=== PATIENT | female | born 1960 | race Caucasian/White ===

== ENCOUNTER → 2016-11-02 | Outpatient (CLI) | payer OTHER ==
[~2016-11-02] MED LIST: B-COTAB18 PO; CHOLTAB3 PO; ESTCR PV
== END | disposition home or self-care (01) ==
LOC: C.PAPS 16:07
PROVIDERS: ATTEND Obstetrics & Gynecology
DX: Z12.4 Encounter for screening for malignant neoplasm of cervix (principal)

== ENCOUNTER → 2016-12-07 | Outpatient (CLI) | payer OTHER ==
--- NOTE | 2016-12-08 07:42 | MAMMOGRAPHY REPORT ---
BILATERAL DIGITAL SCREENING MAMMOGRAM TOMOSYNTHESIS WITH CAD: 12/07/2016 CLINICAL HISTORY: Routine screening. Patient has no complaints. TECHNIQUE: Breast tomosynthesis in addition to standard 2D mammography was performed. Current study was also evaluated with a Computer Aided Detection (CAD) system. COMPARISON: Comparison is made to exams dated: 12/05/2015 mammogram, 12/03/2014 mammogram, 11/30/2013 m ammogram, 11/29/2012 mammogram, 11/26/2011 mammogram, and 11/28/2009 mammogram - [facility]. BREAST COMPOSITION: The tissue of both breasts is extremely dense, which lowers the sensitivity of m ammography. FINDINGS: The parenchymal pattern is unchanged. There are a few stable benign-appearing punctate mi crocalcifications. No developing mass, architectural distortion or cluster of suspicious microcalcif ications is seen in either breast. IMPRESSION: ACR BI-RADS CATEGORY 2: BENIGN There is no mammographic evidence of malignancy. A 1 year screening mammogram is recommended. The pa tient will receive written notification of the results. Approximately 10% of breast cancers are not detected with mammography. A negative mammographic report should not delay biopsy if a clinically suggestive mass is present. Mary Kay Patrick M.D. ay/:12/07/2016 17:05:01 Transmission Mechanic: Lashae WANG(Yuliet)(Ailyn)(BD), [facility] letter sent: Normal 1/2 BI-RADS Code: ACR BI-RADS Category 2: Benign
== END | disposition home or self-care (01) ==
LOC: C.MAMM 10:44
PROVIDERS: ATTEND Obstetrics & Gynecology
DX: Z12.31 Encounter for screening mammogram for malignant neoplasm of breast (principal)

== ENCOUNTER → 2017-12-10 | Outpatient (CLI) | payer OTHER ==
--- NOTE | 2017-12-13 07:43 | MAMMOGRAPHY REPORT ---
BILATERAL DIGITAL SCREENING MAMMOGRAM TOMOSYNTHESIS WITH CAD: 12/10/2017 CLINICAL HISTORY: Routine screening. Patient has no complaints. TECHNIQUE: The study was acquired using full field digital technology and interpreted from soft copy. Breast tomosynthesis in addition to standard 2D mammography was performed. Current study was also ev aluated with a Computer Aided Detection (CAD) system. COMPARISON: Comparison is made to exams dated: 12/07/2016 mammogram, 12/05/2015 mammogram, 12/03/2014 m ammogram, 11/30/2013 mammogram, 11/26/2011 mammogram, and 11/28/2009 mammogram - [facility]. BREAST COMPOSITION: The tissue of both breasts is extremely dense, which lowers the sensitivity of ma mmography. FINDINGS: No suspicious masses, calcifications, or areas of architectural distortion are noted in either breast . There has been no significant interval change compared to prior exams. IMPRESSION: ACR BI-RADS CATEGORY 1: NEGATIVE There is no mammographic evidence of malignancy. A 1 year screening mammogram is recommended.( 019) The patient will receive written notification of the results. Some breast cancers are not detected with mammography. A negative mammographic report should not amanda y biopsy if a clinically suggestive mass is present. Lety Bradley M.D. /:12/10/2017 14:16:36 Industrial Photographer: Nery Sellers, [facility] letter sent: Normal 1/2 BI-RADS Code: ACR BI-RADS Category 1: Negative
== END | disposition home or self-care (01) ==
LOC: C.MAMM 13:44
PROVIDERS: ATTEND Obstetrics & Gynecology
DX: Z12.31 Encounter for screening mammogram for malignant neoplasm of breast (principal)

== ENCOUNTER 2022-10-04 09:49 | Inpatient (IN) ==
--- NOTE | 2022-10-04 10:35 | XRay Report ---
XR hip LT 2V w pelvis CLINICAL HISTORY: left hip pain, fall TECHNIQUE: 2 views of the left hip and single frontal view of the pelvis were obtained. Comparison: Comparison is made to CT abdomen pelvis 05/23/2015 FINDINGS: There is no evidence of an acute fracture. Joint spaces are well-preserved. No soft tissue abnormalit y is seen. IMPRESSION: No evidence of acute osseous injury. ACT 112: Negative or not required by law. Electronically signed by: Robby Brown M.D. 10/04/2022 10:34 AM
[2022-10-04 11:23] LABS: Basophils # (auto) 0.02 K/uL (0-0.2); Basophils % (auto) 0.3 %; Eosinophils # (auto) 0.12 K/uL (0-0.50); Eosinophils % (auto) 1.7 %; Hematocrit (blood only) 43.7 % (37.0-47.0); Hemoglobin 14.7 g/dl (12.0-16.0); Immature Granulocytes # (auto) 0.02 K/uL (0.01-0.20); Immature Granulocytes % (auto) 0.3 %; Lymphocytes # (auto) 0.95 K/uL (1.2-3.4); Lymphocytes % (auto) 13.1 %; Mean Corpuscular Hemoglobin 29.5 pg (25.0-34.0); Mean Corpuscular Hgb Conc 33.6 g/dL (32.0-36.0); Mean Corpuscular Volume 87.8 fL (80.0-100.0); Mean Platelet Volume 9.1 fL (9.4-12.4); Monocytes % (auto) 6.9 %; Neutrophils # (auto) 5.62 K/uL (1.40-6.50); Neutrophils % (auto) 77.7 %; Platelet Count 242 K/uL (130-400); RDW Coefficient of Variation 13.2 % (11.5-14.5); RDW Standard Deviation 42.5 fL (36.4-46.3); Red Blood Count 4.98 M/uL (4.20-5.40); White Blood Count 7.23 K/ul (4.8-10.8)
--- NOTE | 2022-10-04 11:24 | XRay Report ---
XR chest 1V portable CLINICAL HISTORY: hip fx TECHNIQUE: Single frontal radiograph of the chest was obtained. Comparison: None available at the time of this dictation. FINDINGS: No lines and tubes are seen. The cardiomediastinal silhouette is normal. The lungs are clear. No evid ence of pleural effusion or pneumothorax. IMPRESSION: No acute chest disease. ACT 112: Negative or not required by law. Electronically signed by: Robby Brown M.D. 10/04/2022 11:23 AM
[2022-10-04 11:37] LABS: Albumin Globulin Ratio 1.5 (0.9-2); Albumin Level 4.5 gm/dl (3.4-5.0); BUN Creatinine Ratio 12.7 (10-20); Bilirubin,Total 0.7 mg/dl (0.2-1.0); Calcium 9.3 mg/dl (8.6-10.3); Creatinine Clr Calc Pharmacy 58.3 ml/min; Est GFR (African American) 105.1 ml/min; Est GFR (Non-African American) 90.7 ml/min; Potassium 3.9 mmol/L (3.5-5.1); Total Protein 7.5 gm/dl (6.0-8.3)
[2022-10-04 11:48] LABS: INR 0.9 (0.9-1.1); Partial Thromboplastin Ratio 0.9; Prothrombin Time 10.4 Seconds (9.0-12.0)
--- NOTE | 2022-10-04 12:39 | Emergency Department Note ---
ED Provider Note History of Present Illness Chief Complaint: Leg Injury/Pain Stated Complaint: FALL, LEFT HIP AND LEG PAIN Time Seen by Provider: 10/04/22 10:08 Source: patient Mode of arrival: ambulatory Limitations: no limitations This patient is a 62-year-old female who presents to the emergency department for evaluation of left hip pain. Patient sustained a fall yesterday. She states that she was messing around with her daughter and her daughter lightly pu shed her, but she lost her footing and fell onto her left hip. She did not sustain any other injuries. She has not been able to bear any weight on the hip. She denies prior injuries to the hip. Home Medications Medication Instructions Recorded Confirmed Type lutein 6 mg tablet 6 mg PO DAILY 02/14/19 10/04/22 History calcium carb-ergocalciferol (vit 1 tab PO DAILY 10/04/22 10/04/22 History D2) 600 mg calcium-200 unit tablet vitamin B complex 1 tab PO DAILY 10/04/22 10/04/22 History Allergies Allergy/AdvReac Type Severity Reaction Status Date / Time No Known Drug Allergies Allergy Unknown NKDA Verified 06/01/22 14:18 ragweed pollen Allergy Unknown UNKNOWN Verified 06/01/22 14:18 Past Med/Surg History Medical History History of chicken pox History of reactive airway disease Surgical History S/P section S/P colonoscopy 2014 Family History Father Alcoholism Suicide Sister Eisenmenger syndrome Mother Uterine cancer Denies family history of Breast cancer Colorectal cancer Social History Smoking Status: Never smoker Do You Dip or Chew Tobacco: No; Hx Alcohol Use: Yes Hx Substance Use: No Preferred Language: Cuban Feels Safe at Home: Yes Physical Exam Vital Signs Vital Signs - 24 hr 10/04/22 10:10 10/04/22 11:00 Temperature 37 C Temperature Source Oral Pulse Rate [Right Finger] 84 Pulse Rhythm [Right Finger] Regular Pulse Strength [Right Finger] Normal Respiratory Rate 16 18 Respiratory Effort / Characteristics Non-Labored Spontaneous Non-Labored Respiratory Depth Normal Normal Respiratory Pattern Regular Blood Pressure 110/60 Blood Pressure [Right Arm] 125/62 Blood Pressure Mean 76 Blood Pressure Mean [Right Arm] 83 Blood Pressure Position Sitting Blood Pressure Position [Right Arm] Lying Pulse Oximetry 98 99 Oxygen Delivery Method Room Air Room Air Sepsis Recent Fever Within 48 Hours No Sepsis New/Unexplained Change in Mental Status No Sepsis Action Taken by Nursing No Action Required VITALS: Vitals are noted on the nurse's note and reviewed by myself. GENERAL: This is a 62-year-old female, in no acute distress, well-developed well-nourished. HEART: Regular rate and rhythm without murmurs gallops or rubs. LUNGS: Clear to auscultation bilaterally without wheezes, rales or rhonchi. MUSCULOSKELETAL: No obvious deformity. There is tenderness to palpation in the anterior left hip and decreased range of motion at the left hip. NEURO: Patient was alert and oriented to person place and time. Distal sensation intact. Course Consultations Consultation #1: Dr. Schmidt - orthopedics Consultation #2: Dr. [place] - [facility] hospitalist Medical Decision Making Differential Diagnosis Fracture, dislocation, neurovascular compromise, compartment syndrome, soft tissue injury, as well as other pathologies. Home Medications was personally reviewed by me Laboratory Data Attestation: I reviewed the patient's lab results. 10/04/22 10:59 10/04/22 10:59 Lab Results 10/04/22 10/04/22 10/04/22 Range/Units 10:59 10:59 10:59 WBC 7.23 (4.8-10.8) K/ul RBC 4.98 (4.20-5.40) M/uL Hgb 14.7 (12.0-16.0) g/dl Hct 43.7 (37.0-47.0) % MCV 87.8 (80.0-100.0) fL MCH 29.5 (25.0-34.0) pg MCHC 33.6 (32.0-36.0) g/dL RDW Std Deviation 42.5 (36.4-46.3) fL RDW Coeff of Franklin 13.2 (11.5-14.5) % Plt Count 242 (130-400) K/uL MPV 9.1 L (9.4-12.4) fL Immature Gran % (Auto) 0.3 % Neut % (Auto) 77.7 % Lymph % (Auto) 13.1 % Ector % (Auto) 6.9 % Eos % (Auto) 1.7 % Baso % (Auto) 0.3 % Neut # (Auto) 5.62 (1.40-6.50) K/uL Lymph # (Auto) 0.95 L (1.2-3.4) K/uL Ector # (Auto) 0.50 (0.11-0.59) K/uL Eos # (Auto) 0.12 (0-0.50) K/uL Baso # (Auto) 0.02 (0-0.2) K/uL Immature Gran # (Auto) 0.02 (0.01-0.20) K/uL PT 10.4 (9.0-12.0) Seconds INR 0.9 (0.9-1.1) APTT 26.0 (21.0-31.0) Seconds PTT Ratio 0.9 Sodium 138 (136-145) mmol/L Potassium 3.9 (3.5-5.1) mmol/L Chloride 102 (98-107) mmol/L Carbon Dioxide 32 (21-32) mmol/L Anion Gap 4 (3-11) BUN 9 (6-23) mg/dl Creatinine 0.71 (0.6-1.2) mg/dl Est Cr Clr Drug Dosing 58.3 ml/min Est GFR ( Amer) 105.1 ml/min Est GFR (Non-Af Amer) 90.7 ml/min BUN/Creatinine Ratio 12.7 (10-20) Glucose 135 H (70-99(Fasting)) mg/dl Calcium 9.3 (8.6-10.3) mg/dl Total Bilirubin 0.7 (0.2-1.0) mg/dl AST 23 (13-39) U/L ALT 21 (7-52) U/L Alkaline Phosphatase 71 (34-104) U/L Total Protein 7.5 (6.0-8.3) gm/dl Albumin 4.5 (3.4-5.0) gm/dl Globulin 3.0 (2.5-4.0) gm/dl Albumin/Globulin Ratio 1.5 (0.9-2) SARS-CoV-2, RNA, NAAT (NEGATIVE) 10/04/22 Range/Units 11:14 WBC (4.8-10.8) K/ul RBC (4.20-5.40) M/uL Hgb (12.0-16.0) g/dl Hct (37.0-47.0) % MCV (80.0-100.0) fL MCH (25.0-34.0) pg MCHC (32.0-36.0) g/dL RDW Std Deviation (36.4-46.3) fL RDW Coeff of Franklin (11.5-14.5) % Plt Count (130-400) K/uL MPV (9.4-12.4) fL Immature Gran % (Auto) % Neut % (Auto) % Lymph % (Auto) % Ector % (Auto) % Eos % (Auto) % Baso % (Auto) % Neut # (Auto) (1.40-6.50) K/uL Lymph # (Auto) (1.2-3.4) K/uL Ector # (Auto) (0.11-0.59) K/uL Eos # (Auto) (0-0.50) K/uL Baso # (Auto) (0-0.2) K/uL Immature Gran # (Auto) (0.01-0.20) K/uL PT (9.0-12.0) Seconds INR (0.9-1.1) APTT (21.0-31.0) Seconds PTT Ratio Sodium (136-145) mmol/L Potassium (3.5-5.1) mmol/L Chloride (98-107) mmol/L Carbon Dioxide (21-32) mmol/L Anion Gap (3-11) BUN (6-23) mg/dl Creatinine (0.6-1.2) mg/dl Est Cr Clr Drug Dosing ml/min Est GFR ( Amer) ml/min Est GFR (Non-Af Amer) ml/min BUN/Creatinine Ratio (10-20) Glucose (70-99(Fasting)) mg/dl Calcium (8.6-10.3) mg/dl Total Bilirubin (0.2-1.0) mg/dl AST (13-39) U/L ALT (7-52) U/L Alkaline Phosphatase (34-104) U/L Total Protein (6.0-8.3) gm/dl Albumin (3.4-5.0) gm/dl Globulin (2.5-4.0) gm/dl Albumin/Globulin Ratio (0.9-2) SARS-CoV-2, RNA, NAAT NEGATIVE (NEGATIVE) Imaging Data Attestation: I personally reviewed and interpreted this imaging study as follows: Radiologist's Impression: Hip/Pelvis X-Ray 10/04/22 10:11 XR hip LT 2V w pelvis CLINICAL HISTORY: left hip pain, fall TECHNIQUE: 2 views of the left hip and single frontal view of the pelvis were ob tained. Comparison: Comparison is made to CT abdomen pelvis 05/23/2015 FINDINGS: There is no evidence of an acute fracture. Joint spaces are well-preserved. No soft tissue abnormality is seen. IMPRESSION: No evidence of acute osseous injury. ACT 112: Negative or not required by law. Electronically signed by: Robby Brown M.D. 10/04/2022 10:34 AM Chest X-Ray 10/04/22 10:55 XR chest 1V portable CLINICAL HISTORY: hip fx TECHNIQUE: Single frontal radiograph of the chest was obtained. Comparison: None available at the time of this dictation. FINDINGS: No lines and tubes are seen. The cardiomediastinal silhouette is normal. The lungs are clear. No evidence of pleural effusion or pneumothorax. IMPRESSION: No acute chest disease. ACT 112: Negative or not required by law. Electronically signed by: Robby Brown M.D. 10/04/2022 11:23 AM X-rays reviewed by myself, appear to show an impacted femoral neck fracture. This was discussed with radiology, who addended the report. MDM Narrative This patient is a 62-year-old female who presents to the emergency department for evaluation of an injury to her left hip. Patient found to have a hip fracture. Case discussed with orthopedics who initially recommended admission to the medical service. I spoke with the medicine team, who felt that orthopedic admission would be more appropriate. They spoke with orthopedics again who agreed to admit the patient. Patient declined any analgesics while in the emergency department. Initial testing including labs, EKG and chest x-ray were ordered. Findings and treatment plan were discussed with the patient throughout her stay and multiple questions were answered by myself. Patient did have some more specific questions about treatment of her hip fracture and these were deferred to orthopedics Impression Fracture of femoral neck, left, closed Discharge Plan Visit Data Chief Complaint: Leg Injury/Pain Stated Complaint: FALL, LEFT HIP AND LEG PAIN ED Provider: Mary Ann Bledso[facility] ED Midlevel Provider: Cher Shah Discharge Problem: Fracture of femoral neck, left, closed Forms Stand Alone Forms: Xquva Prescriptions Prescriptions: No Action lutein 6 mg tablet 6 mg PO DAILY vitamin B complex Tablet 1 tab PO DAILY Rx Instructions: VIT B6/B12 COMBINATION Calcium + Vitamin D 600 mg calcium- 200 unit Tablet 1 tab PO DAILY Referrals Referrals: Vandana Banegas MD [Primary Care Provider] -
[2022-10-04] MEDS ORDERED: bisacodyL 10 MG SUPP PR PRN (12:54)
[2022-10-04] MEDS ORDERED: MoRPHine SULFATE 2 MG/ML CARP IV PRN (12:54)
[2022-10-04] MEDS ORDERED: ONDANSETRON INJ 2 MG/ML 2 ML VIAL IV PRN (12:54)
[2022-10-04] MEDS ORDERED: NALOXONE HCL 0.4 MG/1 ML VIAL/CARP IV PRN (12:54)
[2022-10-04] MEDS ORDERED: MAGNESIUM HYDROXIDE SUSP 30 ML UDC PO PRN (12:54)
[2022-10-04] MEDS ORDERED: oxyCODONE HCL IR 5 MG TAB (IMMEDIATE RELEASE) PO PRN (12:54)
[2022-10-04] MEDS ORDERED: ENOXAPARIN INJ 30 MG/0.3 ML SYR SQ ONE (12:58)
--- NOTE | 2022-10-04 13:04 | History & Physical Report ---
Date of Service October 04, 2022 Assessment & Plan (1) Fracture of femoral neck, left, closed: Plan: 62 yo F w/ L femoral neck fracture -NWB LLE - Bedrest -Pain control -Diet -DVT PPx -Med mgmt -NPO at NM - Plan for OR 10/05 for L hip ORIF vs AMALIA History of Present Illness Chief Complaint: Left Hip Fx Primary Care Provider: Vandana Banegas MD 62 yo F presenting s/p Fall w/ left hip pain. Xray in ED show impacted left femoral neck fracture. Pt admitted to ortho service with plan for surgical intervention 10/05. Allergies Allergy/AdvReac Type Severity Reaction Status Date / Time No Known Drug Allergies Allergy Unknown NKDA Verified 06/01/22 14:18 ragweed pollen Allergy Unknown UNKNOWN Verified 06/01/22 14:18 Home Medications Medication Instructions Recorded Confirmed Type lutein 6 mg tablet 6 mg PO DAILY 02/14/19 10/04/22 History calcium carb-ergocalciferol (vit 1 tab PO DAILY 10/04/22 10/04/22 History D2) 600 mg calcium-200 unit tablet vitamin B complex 1 tab PO DAILY 10/04/22 10/04/22 History Past Med/Surg History Medical History History of chicken pox History of reactive airway disease Surgical History S/P section S/P colonoscopy 2014 Family History Father Alcoholism Suicide Sister Eisenmenger syndrome Mother Uterine cancer Denies family history of Breast cancer Colorectal cancer Social History Smoking Status: Never smoker Do You Dip or Chew Tobacco: No; Hx Alcohol Use: Yes Hx Substance Use: No Preferred Language: Japanese Feels Safe at Home: Yes Results & Data Results & Data Vital Signs (Past 12 Hours) Vital Signs Temp Pulse Resp BP BP Pulse Ox O2 Del Method 10/04/22 11:00 84 18 125/62 99 Room Air 10/04/22 10:10 37 C 16 110/60 98 Room Air Diagnostic Findings Xray Left Hip: Impacted left femoral neck fracture.
[2022-10-04] MEDS: SODIUM CHLORIDE 0.9% 1000ML 1,000 ML IV SCH (14:32)
[2022-10-04] MEDS: ACETAMINOPHEN 325 MG TAB PO PRN ×2 (17:34→23:56)
[2022-10-04] MEDS: DOCUSATE SODIUM/SENNA 50/8.6MG TAB PO SCH (20:42)
[2022-10-05] MEDS: SODIUM CHLORIDE 0.9% 1000ML 1,000 ML IV SCH ×3 (04:35→22:32)
[2022-10-05 04:48] LABS: Appearance Urine Clear (Clear); Bilirubin Urine Negative (Negative); Blood Urine Negative (Negative); Color Urine Yellow; Glucose Urine UA Negative (Negative); Ketones Urine Negative (Negative); Leukocyte Esterase Urine Negative (Negative); Nitrite Urine Negative (Negative); Protein Urine Negative (Negative); Specific Gravity Urine 1.012 (1.000-1.030); Urobilinogen Urine Negative (Negative)
[2022-10-05] MEDS ORDERED: TRANEXAMIC ACID / 0.7% NACL 1,000 MG/100 ML BAG IV SCH ×2 (06:00→06:30)
[2022-10-05] MEDS ORDERED: ceFAZolin 2000MG 2,000 MG/15 ML SYR IV SCH (06:00)
--- NOTE | 2022-10-05 06:30 | Electrocardiogram Report ---
Test Reason : Blood Pressure : / mmHG Vent. Rate : 083 BPM Atrial Rate : 083 BPM P-R Int : 194 ms QRS Dur : 074 ms QT Int : 372 ms P-R-T Axes : 080 080 088 degrees QTc Int : 437 ms Normal sinus rhythm Nonspecific T wave abnormality Abnormal ECG No previous ECGs available Confirmed by German Olivas ([id number]) on 10/05/2022 6:30:00 AM Referred By: REFERRED SELF Confirmed By:German Olivas
[2022-10-05] MEDS: KETOROLAC TROMETHAMINE 15 MG/ML VIAL IV PRN (08:54)
--- NOTE | 2022-10-05 10:40 | Anesthesiology Consultation ---
Date of Service October 05, 2022 Assessment & Plan (1) Encounter for pre-operative examination: Chart Review Chart Review: Acceptable Risk for Surgery and Patient NOT seen in Pre Admission Testing Consults Requested none History Surgery Operation Date: 10/05/22 11:00 Proposed Procedures p Left Femoral Neck Synthes System - Damian Schmidt DO Height/Weight Height: 5 ft Weight: 46.1 kg Allergies Allergy/AdvReac Type Severity Reaction Status Date / Time No Known Drug Allergies Allergy Unknown NKDA Verified 06/01/22 14:18 ragweed pollen Allergy Unknown UNKNOWN Verified 06/01/22 14:18 Medications Home Medications Medication Instructions Recorded Confirmed Last Taken lutein 6 mg tablet 6 mg PO DAILY 02/14/19 10/04/22 10/03/22 calcium carb-ergocalciferol (vit 1 tab PO DAILY 10/04/22 10/04/22 10/03/22 D2) 600 mg calcium-200 unit tablet vitamin B complex 1 tab PO DAILY 10/04/22 10/04/22 10/03/22 Active Medications Generic Name Dose Route Start Last Admin Trade Name Freq PRN Reason Stop Dose Admin Acetaminophen 650 mg 10/04/22 12:54 10/04/22 23:56 Acetaminophen 325 Mg Tab PO 11/03/22 12:53 650 mg Q6H PRN Administration Pain & Pre PT Sodium Chloride 1,000 mls @ 75 mls/hr 10/04/22 13:00 10/05/22 04:35 Nss 1000ml IV 11/03/22 12:59 75 mls/hr .[id number] TALI Administration Ketorolac Tromethamine 15 mg 10/05/22 00:25 10/05/22 08:54 Ketorolac Tromethamine 15 Mg/Ml Vial IV 15 mg Q6H PRN Administration Pain Senna/Docusate Sodium 2 tab 10/04/22 21:00 10/04/22 20:42 Docusate Sodium/Senna 50/8.6mg Tab PO 11/03/22 20:59 2 tab HS TALI Administration NPO Date Last Intake of Fluids: 10/04/22 Time Last Intake of Fluids: 23:59 Date Last Intake of Solids: 10/04/22 Time Last Intake of Solids: 23:59 Past Medical History Medical History History of chicken pox History of reactive airway disease Past Family History Family History Father Alcoholism Suicide Sister Eisenmenger syndrome Mother Uterine cancer Denies family history of Breast cancer Colorectal cancer Past Surgical History Surgical History S/P section S/P colonoscopy 2014 Social History Smoking Status: Never smoker Do You Dip or Chew Tobacco: No Hx Alcohol Use: Yes Alcohol type: beer alcohol intake frequency: a few times a week Hx Substance Use: No Physical Exam Vital Signs Last Vital Signs Temp 97.9 F 10/05/22 07:42 Pulse 47 L 10/05/22 07:42 Resp 14 10/05/22 07:42 BP 123/74 10/05/22 07:42 Pulse Ox 97 10/05/22 07:42 O2 Del Method Room Air 10/05/22 07:55 Testing Laboratory Results 10/04/22 10:59 10/04/22 10:59 PT 10.4 Seconds (9.0-12.0) 10/04/22 10:59 INR 0.9 (0.9-1.1) 10/04/22 10:59 APTT 26.0 Seconds (21.0-31.0) 10/04/22 10:59 Urine Color Yellow 10/05/22 04:35 Urine Appearance Clear (Clear) 10/05/22 04:35 Urine pH 6.0 (4.5-7.5) 10/05/22 04:35 Ur Specific [place] 1.012 (1.000-1.030) 10/05/22 04:35 Urine Protein Negative (Negative) 10/05/22 04:35 Urine Glucose (UA) Negative (Negative) 10/05/22 04:35 Urine Ketones Negative (Negative) 10/05/22 04:35 Urine Nitrite Negative (Negative) 10/05/22 04:35 Ur Leukocyte Esterase Negative (Negative) 10/05/22 04:35 Blood Type O Negative 10/04/22 13:13 Antibody Screen NEGATIVE 10/04/22 13:13 Electrocardiogram Date: 10/04/22 Findings: + NSR @ Nonspecific T wave abnormality Abnormal ECG Chest X-Ray Date: 10/04/22 Findings: + NAD
--- NOTE | 2022-10-05 17:21 | History & Physical Bridge Note ---
Date of Service October 05, 2022 History & Physical Bridge Note I have examined the patient, reviewed the History & Physical and in the interval since the performance of the History & Physical I have noted the following changes of clinical significance: no changes noted. Had a lengthy discussion regarding risks/benefits of left femoral neck ORIF including but no limited to: infection, neurovascular injury, dvt, nonunion, malunion, hardware failure and need for future surgery. After reviewing these the patient elected to proceed with surgical intervention and written consent was obtained.
--- NOTE | 2022-10-05 17:25 | Orthopedic Progress Note ---
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 Physical Exam Constitutional: Gen: NAD, AAOx3 Musculoskeletal: LLE +logroll - silt s/s/pn/dpn/t/s - fires ta/ehl/gsc +dp/pt Results & Data Vital Signs (Past 12 Hours) Vital Signs Temp Pulse Resp BP Pulse Ox Pulse Ox O2 Del Method 10/05/22 11:00 37.1 C 68 18 125/71 98 Room Air 10/05/22 12:00 97 10/05/22 07:55 Room Air 10/05/22 07:42 36.6 C 47 L 14 123/74 97 Room Air O2 Del Method 10/05/22 11:00 10/05/22 12:00 Room Air 10/05/22 07:55 10/05/22 07:42 (1) Fracture of femoral neck, left, closed Encounter type: initial encounter Qualified Code(s): S72.002A - Fracture of unspecified part of neck of left femur, initial encounter for closed fracture
[2022-10-05] MEDS ORDERED: ePHEDrine sulfate 50 MG/ML AMP IV PRN (19:30)
[2022-10-05] MEDS ORDERED: ALBUTEROL 0.083% NEBU SOLN 3 ML VIAL INH PRN (19:30)
[2022-10-05] MEDS ORDERED: ATROPINE SULFATE 0.1 MG/ML 10ML SYR IV PRN (19:30)
[2022-10-05] MEDS ORDERED: ONDANSETRON INJ 2 MG/ML 2 ML VIAL IV PRN (19:30)
[2022-10-05] MEDS ORDERED: MEPERIDINE HCL 25 MG/ML CARP/VIAL IV PRN (19:30)
[2022-10-05] MEDS ORDERED: MoRPHine SULFATE 10 MG/ML CARP/VIAL IV PRN (19:30)
[2022-10-05] MEDS ORDERED: ONDANSETRON INJ 2 MG/ML 2 ML VIAL ONE (19:55)
[2022-10-05] MEDS ORDERED: PROPOFOL IV EMULSION 10 MG/ML 20 ML VIAL IV ONE (19:55)
[2022-10-05] MEDS ORDERED: LIDOCAINE 2% 2 ML VIAL/AMP(20MG/ML) INFIL ONE (19:55)
[2022-10-05] MEDS ORDERED: MIDAZOLAM HCL 1 MG/ML 2ML VIAL ONE (19:55)
[2022-10-05] MEDS ORDERED: DEXAMETHASONE SOD INJ 4 MG/ML VIAL ONE (19:55)
[2022-10-05] MEDS ORDERED: ROCURONIUM BROMIDE 10 MG/ML 5 ML VIAL IV ONE (19:55)
[2022-10-05] MEDS ORDERED: fentaNYL citrate PF 100 MCG/2 ML VIAL ONE (19:55)
[2022-10-05] MEDS ORDERED: BUPIVACAINE 0.25% PF 30 ML VIAL ONE (20:40)
[2022-10-05] MEDS ORDERED: PHENYLEPHRINE HCL 10 MG/ML VIAL ONE (20:53)
[2022-10-05] MEDS ORDERED: NEOSTIGMINE METHYLSULFATE 1 MG/ML 10ML VIAL ONE (21:05)
[2022-10-05] MEDS ORDERED: GLYCOPYRROLATE 0.2 MG/ML VIAL ONE (21:05)
[2022-10-05] MEDS ORDERED: ceFAZolin 2000MG 2,000 MG/15 ML SYR IV ONE (21:19)
--- NOTE | 2022-10-05 21:26 | Post Operative Brief Note ---
Immediate Post Op Note v1 Date of Surgery October 05, 2022 Pre & Post Diagnosis Operation Date: 10/05/22 11:00 Pre-Op Diagnosis: Left femoral neck fracture Post-Op Diagnosis: Left femoral neck fracture I identified the patient and participated in the time-out.: Yes Procedure Operation Date: 10/05/22 11:00 Actual Procedures p Left Femoral Neck Synthes System(Left) - Damian Schmidt DO Surgeon Damian Schmidt DO [place] none Estimated Blood Loss 25 Findings Consistent with Post-Op Diagnosis See dictation Complications None
--- NOTE | 2022-10-05 21:31 | Operative Report ---
Post Operative Report Pre & Post Diagnosis Operation Date: 10/05/22 11:00 Pre-Op Diagnosis: Left femoral neck fracture Post-Op Diagnosis: Left femoral neck fracture I identified the patient and participated in the time-out.: Yes Procedure Operation Date: 10/05/22 11:00 Actual Procedures p Left Femoral Neck Synthes System(Left) - Damian Schmidt DO Surgeon Damian Schmidt DO Physical Fitness Teacher none Estimated Blood Loss 25 Findings Consistent with Post-Op Diagnosis See dictation Specimens None Drains None Complications None Indications 62-year-old female who fell onto her left hip and noted immediate pain and difficulty with weightbearing. She presented to the emergency department where radiographs were obtained demonstrating a valgus impacted left femoral neck fracture. Patient was admitted to orthopedic service for planned operative intervention. Preoperatively I had a lengthy discussion with the patient regarding risk benefits potential complications of left femoral neck open reduction internal fixation for her valgus impacted left femoral neck fracture. Risk include but are not limited to: Infection, neurovascular injury, DVT, nonunion, malunion, hardware failure and need for future surgery. After reviewing these she elected proceed with surgical intervention and written consent was obtained. Description of Procedure Implants: Synthes femoral neck system plate 1 hole, 75 mm femoral neck bolt, 75 mm antirotation screw, 5 mm x 40 mm StarDrive locking screw Patient was appropriate identified in the preoperative holding area. She re ceived antibiotics per protocol. She received spinal anesthesia. She was then transferred over to manual fracture table. Radiographs were then obtained demonstrating a valgus impacted left femoral neck fracture. The patient was then prepped and draped in standard orthopedic fashion and timeout was then performed. A 3 cm incision overlying the lateral aspect of the proximal femur was then made with a scalpel. Scalpel incision was then carried out down through the subcutaneous tissue and IT band fascia. A femoral neck 130 degree guide was then placed down to bone. Guidewire was then advanced through the lateral cortex into the femoral head and a center center position just beneath the subchondral bone. Length was measured at 75 mm. Guide was then removed and a tapered reamer was set to 75 mm and was reamed over the guidewire. A 75 mm bolt with 1 hole plate was then inserted over the guidewire. Plate was then impacted down to bone. Threaded guidewire was then removed and drill was used to drill bicortically to place a 5 mm x 40 mm stardrive locking screw. Anti- rotational hole was then drilled using a 75 mm drill. 75 mm antirotation hole screw was then locked into the construct. Aiming arm was then removed and final radiographs were obtained demonstrating a good position of the implant and stable fracture. Wounds were then copiously irrigated using normal saline so lution. 30 cc of quarter percent Marcaine was injected into the subcutaneous tissue and IT band fascia. IT band fascia was then closed in a [id number] fashion using 0 Vicryl suture. Subcutaneous tissues were then closed using 2-0 Vicryl suture. Mehdi were then used to close the skin. A sterile dressing of Xeroform 4 x 4 gauze and Tegaderm was then placed. The patient tolerated the procedure well was taken recovery room in hemodynamically stable condition I attest to the content of the Intraoperative Record and any orders documented therein. Any exceptions are noted below.
[2022-10-05] MEDS ORDERED: ceFAZolin 330 MG/ML 1 GM VIAL ONE (21:38)
[2022-10-05] MEDS: fentaNYL citrate PF 100 MCG/2 ML VIAL IV PRN ×2 (21:48→21:57)
--- NOTE | 2022-10-05 22:08 | Anesthesiology Progress Note ---
Date of Service October 05, 2022 Anesthesia Post Procedure Vital Signs Vital Signs: Temp Pulse Pulse Resp BP Pulse Ox Pulse Ox 10/05/22 22:00 74 16 141/60 H 95 10/05/22 21:50 79 18 145/63 H 97 10/05/22 21:40 81 14 127/59 L 100 10/05/22 21:31 36.2 C L 105 H 16 134/53 L 97 10/05/22 19:45 37.2 C 68 16 138/67 97 10/05/22 11:00 37.1 C 68 18 125/71 98 10/05/22 12:00 97 10/05/22 07:55 10/05/22 07:42 36.6 C 47 L 14 123/74 97 10/05/22 04:14 96 O2 Del Method O2 Del Method O2 Flow Rate 10/05/22 22:00 Room Air 10/05/22 21:50 Room Air 10/05/22 21:40 Room Air 10/05/22 21:31 Oxymask 6 10/05/22 19:45 Room Air 10/05/22 11:00 Room Air 10/05/22 12:00 Room Air 10/05/22 07:55 Room Air 10/05/22 07:42 Room Air 10/05/22 04:14 Room Air Pain Intensity Left Leg: Pain Intensity: 4 Left Hip: Pain Intensity: 8 Transfer of Care Handoff Completed per policy Notes Mental Status: alert / awake / arousable Patient Amnestic to Procedure: Yes Nausea / Vomiting: adequately controlled Pain: adequately controlled Airway Patency, RR, SpO2: stable & adequate BP & HR: stable & adequate Hydration State: stable & adequate Anesthetic Complications: no major complications apparent and Pt Satisfied with anesthetic care
[2022-10-05] MEDS: DOCUSATE SODIUM/SENNA 50/8.6MG TAB PO SCH (22:25)
[2022-10-05] MEDS: ACETAMINOPHEN 325 MG TAB PO PRN (23:50)
[2022-10-06] MEDS: ceFAZolin 2000MG 2,000 MG/15 ML SYR IV SCH ×2 (04:22→11:15)
[2022-10-06 05:05] LABS: Hemoglobin 12.2 g/dl (12.0-16.0); Mean Corpuscular Hemoglobin 29.6 pg (25.0-34.0); Mean Corpuscular Hgb Conc 33.9 g/dL (32.0-36.0); Mean Corpuscular Volume 87.4 fL (80.0-100.0); Mean Platelet Volume 9.3 fL (9.4-12.4); Platelet Count 212 K/uL (130-400); RDW Coefficient of Variation 12.9 % (11.5-14.5); RDW Standard Deviation 41.1 fL (36.4-46.3); Red Blood Count 4.12 M/uL (4.20-5.40); White Blood Count 6.05 K/ul (4.8-10.8)
[2022-10-06 05:20] LABS: BUN Creatinine Ratio 12.5 (10-20); Calcium 8.6 mg/dl (8.6-10.3); Creatinine Clr Calc Pharmacy 57.4 ml/min; Est GFR (African American) 103.3 ml/min; Est GFR (Non-African American) 89.1 ml/min; Potassium 3.9 mmol/L (3.5-5.1)
[2022-10-06 05:51] LABS: Basophils # (auto) 0.01 K/uL (0-0.2); Basophils % (auto) 0.2 %; Immature Granulocytes # (auto) 0.01 K/uL (0.01-0.20); Immature Granulocytes % (auto) 0.2 %; Lymphocytes # (auto) 0.35 K/uL (1.2-3.4); Lymphocytes % (auto) 5.8 %; Monocytes # (auto) 0.21 K/uL (0.11-0.59); Monocytes % (auto) 3.5 %; Neutrophils # (auto) 5.47 K/uL (1.40-6.50); Neutrophils % (auto) 90.3 %
[2022-10-06] MEDS: ASPIRIN 81 MG ECTAB PO SCH ×2 (08:19→19:59)
[2022-10-06] MEDS: ACETAMINOPHEN 325 MG TAB PO PRN ×2 (08:22→15:08)
--- NOTE | 2022-10-06 08:47 | Fluoroscopy Report ---
FL hip LT 2-3V CLINICAL HISTORY: LT TROCH NAIL TECHNIQUE: 3 views were obtained with the C-arm in the OR with the above procedure. Total fluoroscopy time was 55 seconds. Radiation dose was 12.62 mGy. Comparison: None available at the time of this dictation. FINDINGS/IMPRESSION: Intraoperative images were obtained of left femoral neck nail placement. Please correlate with intraoperative fluoroscopy and operative report. ACT 112: Negative or not required by law. Electronically signed by: Robby Brown M.D. 10/06/2022 8:46 AM
[2022-10-06] MEDS: SODIUM CHLORIDE 0.9% 1000ML 1,000 ML IV SCH (11:16)
--- NOTE | 2022-10-06 12:37 | Orthopedic Progress Note ---
Date of Service October 06, 2022 Assessment & Plan (1) Fracture of femoral neck, left, closed: Plan: Postop day 1 status post ORIF left femoral neck fracture PT/OT protocols. Partial weightbearing left lower extremity DVT prophylaxis-aspirin p.o. twice daily, AGUSTINA Shea. Pain management as written. DC planning-patient is planning for home with home health. Patient remaining stable. Orthopedics will sign off at this time. Please call with any questions. Instructions placed in discharge section. Admission and Anticipated Discharge Date Admission Date: October 04, 2022 Subjective Postop day 1 Patient is awake and alert sitting up in bed. She is playing cards with a family member. Pain is controlled. She states she feels well. She was up ambulating partial weightbearing with physical therapy today. Physical Exam Physical Exam: Dressings are clean, dry, and intact. Calves are soft nontender. Neurovascular intact. Toes are mobile. Results & Data Vital Signs (Past 12 Hours) Vital Signs Temp Pulse Pulse Resp BP Pulse Ox Pulse Ox 10/06/22 07:23 36.6 C 74 16 123/68 97 10/06/22 06:07 95 10/06/22 02:09 36.6 C 105 H 18 103/62 95 O2 Del Method O2 Del Method 10/06/22 07:23 Room Air 10/06/22 06:07 Room Air 10/06/22 02:09 Room Air Laboratory Results Laboratory Results WBC 6.05 K/ul (4.8-10.8) 10/06/22 04:31 RBC 4.12 M/uL (4.20-5.40) L 10/06/22 04:31 Hgb 12.2 g/dl (12.0-16.0) 10/06/22 04:31 Hct 36.0 % (37.0-47.0) L 10/06/22 04:31 MCV 87.4 fL (80.0-100.0) 10/06/22 04:31 MCH 29.6 pg (25.0-34.0) 10/06/22 04:31 MCHC 33.9 g/dL (32.0-36.0) 10/06/22 04:31 RDW Std Deviation 41.1 fL (36.4-46.3) 10/06/22 04:31 RDW Coeff of [place] 12.9 % (11.5-14.5) 10/06/22 04:31 Plt Count 212 K/uL (130-400) 10/06/22 04:31 MPV 9.3 fL (9.4-12.4) L 10/06/22 04:31 Immature Gran % (Auto) 0.2 % 10/06/22 04:31 Neut % (Auto) 90.3 % 10/06/22 04:31 Lymph % (Auto) 5.8 % 10/06/22 04:31 [place] % (Auto) 3.5 % 10/06/22 04:31 Eos % (Auto) 0.0 % 10/06/22 04:31 Baso % (Auto) 0.2 % 10/06/22 04:31 Neut # (Auto) 5.47 K/uL (1.40-6.50) 10/06/22 04:31 Lymph # (Auto) 0.35 K/uL (1.2-3.4) L 10/06/22 04:31 [place] # (Auto) 0.21 K/uL (0.11-0.59) 10/06/22 04:31 Eos # (Auto) 0.00 K/uL (0-0.50) 10/06/22 04:31 Baso # (Auto) 0.01 K/uL (0-0.2) 10/06/22 04:31 Immature Gran # (Auto) 0.01 K/uL (0.01-0.20) 10/06/22 04:31 PT 10.4 Seconds (9.0-12.0) 10/04/22 10:59 INR 0.9 (0.9-1.1) 10/04/22 10:59 APTT 26.0 Seconds (21.0-31.0) 10/04/22 10:59 PTT Ratio 0.9 10/04/22 10:59 Sodium 139 mmol/L (136-145) 10/06/22 04:31 Potassium 3.9 mmol/L (3.5-5.1) 10/06/22 04:31 Chloride 106 mmol/L (98-107) 10/06/22 04:31 Carbon Dioxide 26 mmol/L (21-32) 10/06/22 04:31 Anion Gap 7 (3-11) 10/06/22 04:31 BUN 9 mg/dl (6-23) 10/06/22 04:31 Creatinine 0.72 mg/dl (0.6-1.2) 10/06/22 04:31 Est Cr Clr Drug Dosing 57.4 ml/min 10/06/22 04:31 Est GFR ( Amer) 103.3 ml/min 10/06/22 04:31 Est GFR (Non-Af Amer) 89.1 ml/min 10/06/22 04:31 BUN/Creatinine Ratio 12.5 (10-20) 10/06/22 04:31 Glucose 133 mg/dl (70-99(Fasting)) H 10/06/22 04:31 Calcium 8.6 mg/dl (8.6-10.3) 10/06/22 04:31 Total Bilirubin 0.7 mg/dl (0.2-1.0) 10/04/22 10:59 AST 23 U/L (13-39) 10/04/22 10:59 ALT 21 U/L (7-52) 10/04/22 10:59 Alkaline Phosphatase 71 U/L (34-104) 10/04/22 10:59 Total Protein 7.5 gm/dl (6.0-8.3) 10/04/22 10:59 Albumin 4.5 gm/dl (3.4-5.0) 10/04/22 10:59 Globulin 3.0 gm/dl (2.5-4.0) 10/04/22 10:59 Albumin/Globulin Ratio 1.5 (0.9-2) 10/04/22 10:59 25-OH Vitamin D Total 29.3 ng/ml (30-100) L 10/06/22 04:31 Urine Color Yellow 10/05/22 04:35 Urine Appearance Clear (Clear) 10/05/22 04:35 Urine pH 6.0 (4.5-7.5) 10/05/22 04:35 Ur Specific [place] 1.012 (1.000-1.030) 10/05/22 04:35 Urine Protein Negative (Negative) 10/05/22 04:35 Urine Glucose (UA) Negative (Negative) 10/05/22 04:35 Urine Ketones Negative (Negative) 10/05/22 04:35 Urine Blood Negative (Negative) 10/05/22 04:35 Urine Nitrite Negative (Negative) 10/05/22 04:35 Urine Bilirubin Negative (Negative) 10/05/22 04:35 Urine Urobilinogen Negative (Negative) 10/05/22 04:35 Ur Leukocyte Esterase Negative (Negative) 10/05/22 04:35 SARS-CoV-2, RNA, NAAT NEGATIVE (NEGATIVE) 10/04/22 11:14 Blood Type O Negative 10/04/22 13:13 Antibody Screen NEGATIVE 10/04/22 13:13 Impression Hip X-Ray 10/05/22 14:30 FL hip LT 2-3V CLINICAL HISTORY: LT TROCH NAIL TECHNIQUE: 3 views were obtained with the C-arm in the OR with the above procedure. Total fluoroscopy time was 55 seconds. Radiation dose was 12.62 mGy. Comparison: None available at the time of this dictation. FINDINGS/IMPRESSION: Intraoperative images were obtained of left femoral neck nail placement. Please correlate with intraoperative fluoroscopy and operative report. ACT 112: Negative or not required by law. Electronically signed by: Robby Brown M.D. 10/06/2022 8:46 AM (1) Fracture of femoral neck, left, closed Encounter type: initial encounter Qualified Code(s): S72.002A - Fracture of unspecified part of neck of left femur, initial encounter for closed fracture
[2022-10-06] MEDS: KETOROLAC TROMETHAMINE 15 MG/ML VIAL IV PRN (19:57)
[2022-10-06] MEDS: DOCUSATE SODIUM/SENNA 50/8.6MG TAB PO SCH (19:59)
[2022-10-07] MEDS: ACETAMINOPHEN 325 MG TAB PO PRN (03:50)
--- NOTE | 2022-10-07 08:33 | Orthopedic Progress Note ---
Date of Service October 07, 2022 Assessment & Plan (1) Fracture of femoral neck, left, closed: Plan: Postop day 2 status post ORIF left femoral neck fracture PT/OT protocols. Partial weightbearing left lower extremity DVT prophylaxis-aspirin p.o. twice daily, SCDs, AGUSTINA lemus. Pain management as written. Will get xray left knee. Discussed that this may be secondary to referred pain from the hip as well as the swelling. Pt had been having pain off and on in the knee in the past. DC planning-patient is planning for home with home health. Admission and Anticipated Discharge Date Admission Date: October 04, 2022 Subjective POD 2 Pt sitting in chair at bedside. Feeling better today. States she's been having knee pain in the left knee and is concerned about possible injury. No other complaints. Pt is hoping to go home today. Physical Exam Physical Exam: Dressing intact. Calves soft,NT. NV intact. Mild soft tissue swelling around the left knee compared to the right knee. No pain on palpation. No erythema. I can take her through gentle passive ROM without pain or crepitus. No apparent ligamentous injury. Results & Data Vital Signs (Past 12 Hours) Vital Signs Temp Pulse Pulse Resp BP Pulse Ox Pulse Ox 10/07/22 07:55 36.7 C 75 12 124/76 97 10/07/22 05:09 93 10/06/22 21:39 36.6 C 73 16 143/68 H 93 O2 Del Method O2 Del Method 10/07/22 07:55 Room Air 10/07/22 05:09 Room Air 10/06/22 21:39 Room Air (1) Fracture of femoral neck, left, closed Encounter type: initial encounter Qualified Code(s): S72.002A - Fracture of unspecified part of neck of left femur, initial encounter for closed fracture
--- NOTE | 2022-10-07 09:54 | XRay Report ---
XR knee LT 1 or 2V routine HISTORY: 62 years-old Female Left knee pain acute left knee pain without reported trauma COMPARISON: None TECHNIQUE: 2 views of the left knee FINDINGS: Mild circumferential soft tissue swelling of the knee. No acute fracture, dislocation, large joint ef fusion or significant joint space narrowing. IMPRESSION: Soft tissue swelling without acute osseous abnormality. ACT 112: Negative or not required by law. The above report was generated using voice recognition software. It may contain grammatical, syntax o r spelling errors. Electronically signed by: Damian Markham M.D. 10/07/2022 9:52 AM
--- NOTE | 2022-10-20 09:50 | Discharge Summary ---
Date of Service October 20, 2022 Admission HPI Per Admitting Provider 62 yo F presenting s/p Fall w/ left hip pain. Xray in ED show impacted left femoral neck fracture. Pt admitted to ortho service with plan for surgical intervention 10/05. Principal Diagnosis Left Femoral Neck Fx Discharge Data Allergies Allergy/AdvReac Type Severity Reaction Status Date / Time No Known Drug Allergies Allergy Unknown NKDA Verified 06/01/22 14:18 ragweed pollen Allergy Unknown UNKNOWN Verified 06/01/22 14:18 Consultations 10/04/22 12:36 ED Decision to Admit Stat Procedures Performed Operation Date: 10/05/22 11:00 Actual Procedures p Left Femoral Neck Synthes System(Left) - Damian Schmidt DO Ordered Studies 10/05/22 14:30 FL hip LT 2-3V Routine Hospital Course (1) Fracture of femoral neck, left, closed: Patient:KEVYN BEASLEY Admit Date:10/04/22 MR#:[id number] Att Phy:Damina Schmidt DO Acct ID:[id number] Alison Phy:Vandana Banegas MD Date:1960 Fam Phy: Age:62 Location:3W Sex:F Room/Bed:[facility] cc: ~ *NOTICE TO RECEIVING CONSTITUTION PARTY/AGENCY This information is strictly Confidential and protected under [place] law. [place] law prohibits you from making any further disclosure of this information unless further disclosure is expressly permitted by the written consent of the person to whom it pertains or is authorized by law. A general authorization for the release of medical or other information is not sufficient for this purpose. Hospital accepts no resp onsibility if the information is made available to any other person, INCLUDING THE PATIENT. Date of Service October 06, 2022 Assessment & Plan (1) Fracture of femoral neck, left, closed: Plan: Postop day 1 status post ORIF left femoral neck fracture PT/OT protocols. Partial weightbearing left lower extremity DVT prophylaxis-aspirin p.o. twice daily, SCDs, AGUSTINA hose. Pain management as written. DC planning-patient is planning for home with home health. Patient remaining stable. Orthopedics will sign off at this time. Please call with any questions. Instructions placed in discharge section. Admission and Anticipated Discharge Date Admission Date: October 04, 2022 Subjective Postop day 1 Patient is awake and alert sitting up in bed. She is playing cards with a family member. Pain is controlled. She states she feels well. She was up ambulating partial weightbearing with physical therapy today. Physical Exam Physical Exam: Dressings are clean, dry, and intact. Calves are soft nontender. Neurovascular intact. Toes are mobile. Results & Data Vital Signs (Past 12 Hours) Vital Signs Temp Pulse Pulse Resp BP Pulse Ox Pulse Ox 10/06/22 07: 36.6 C 74 16 123/68 97 10/06/22 06:07 95 10/06/22 02:09 36.6 C 105 H 18 103/62 95 O2 Del Method O2 Del Method 10/06/22 07:23 Room Air 10/06/22 06:07 Room Air 10/06/22 02:09 Room Air Laboratory Results Laboratory Results WBC 6.05 K/ul (4.8-10.8) 10/06/22 04:31 RBC 4.12 M/uL (4.20-5.40) L 10/06/22 04:31 Hgb 12.2 g/dl (12.0-16.0) 10/06/22 04:31 Hct 36.0 % (37.0-47.0) L 10/06/22 04:31 MCV 87.4 fL (80.0-100.0) 10/06/22 04:31 MCH 29.6 pg (25.0-34.0) 10/06/22 04:31 MCHC 33.9 g/dL (32.0-36.0) 10/06/22 04:31 RDW Std Deviation 41.1 fL (36.4-46.3) 10/06/22 04:31 RDW Coeff of [place] 12.9 % (11.5-14.5) 10/06/22 04:31 Plt Count 212 K/uL (130-400) 10/06/22 04:31 MPV 9.3 fL (9.4-12.4) L 10/06/22 04:31 Immature Gran % (Auto) 0.2 % 10/06/22 04:31 Neut % (Auto) 90.3 % 10/06/22 04:31 Lymph % (Auto) 5.8 % 10/06/22 04:31 [place] % (Auto) 3.5 % 10/06/22 04:31 Eos % (Auto) 0.0 % 10/06/22 04:31 Baso % (Auto) 0.2 % 10/06/22 04:31 Neut # (Auto) 5.47 K/uL (1.40-6.50) 10/06/22 04:31 Lymph # (Auto) 0.35 K/uL (1.2-3.4) L 10/06/22 04:31 [place] # (Auto) 0.21 K/uL (0.11-0.59) 10/06/22 04:31 Eos # (Auto) 0.00 K/uL (0-0.50) 10/06/22 04:31 Baso # (Auto) 0.01 K/uL (0-0.2) 10/06/22 04:31 Immature Gran # (Auto) 0.01 K/uL (0.01-0.20) 10/06/22 04:31 PT 10.4 Seconds (9.0-12.0) 10/04/22 10:59 INR 0.9 (0.9-1.1) 10/04/22 10:59 APTT 26.0 Seconds (21.0-31.0) 10/04/22 10:59 PTT Ratio 0.9 10/04/22 10:59 Sodium 139 mmol/L (136-145) 10/06/22 04:31 Potassium 3.9 mmol/L (3.5-5.1) 10/06/22 04:31 Chloride 106 mmol/L (98-107) 10/06/22 04:31 Carbon Dioxide 26 mmol/L (21-32) 10/06/22 04:31 Anion Gap 7 (3-11) 10/06/22 04:31 BUN 9 mg/dl (6-23) 10/06/22 04:31 Creatinine 0.72 mg/dl (0.6-1.2) 10/06/22 04:31 Est Cr Clr Drug Dosing 57.4 ml/min 10/06/22 04:31 Est GFR ( Amer) 103.3 ml/min 10/06/22 04:31 Est GFR (Non-Af Amer) 89.1 ml/min 10/06/22 04:31 BUN/Creatinine Ratio 12.5 (10-20) 10/06/22 04:31 Glucose 133 mg/dl (70-99(Fasting)) H 10/06/22 04:31 Calcium 8.6 mg/dl (8.6-10.3) 10/06/22 04:31 Total Bilirubin 0.7 mg/dl (0.2-1.0) 10/04/22 10:59 AST 23 U/L (13-39) 10/04/22 10:59 ALT 21 U/L (7-52) 10/04/22 10:59 Alkaline Phosphatase 71 U/L (34-104) 10/04/22 10:59 Total Protein 7.5 gm/dl (6.0-8.3) 10/04/22 10:59 Albumin 4.5 gm/dl (3.4-5.0) 10/04/22 10:59 Globulin 3.0 gm/dl (2.5-4.0) 10/04/22 10:59 Albumin/Globulin Ratio 1.5 (0.9-2) 10/04/22 10:59 25-OH Vitamin D Total 29.3 ng/ml (30-100) L 10/06/22 04:31 Urine Color Yellow 10/05/22 04:35 Urine Appearance Clear (Clear) 10/05/22 04:35 Urine pH 6.0 (4.5-7.5) 10/05/22 04:35 Ur Specific [place] 1.012 (1.000-1.030) 10/05/22 04:35 Urine Protein Negative (Negative) 10/05/22 04:35 Urine Glucose (UA) Negative (Negative) 10/05/22 04:35 Urine Ketones Negative (Negative) 10/05/22 04:35 Urine Blood Negative (Negative) 10/05/22 04:35 Urine Nitrite Negative (Negative) 10/05/22 04:35 Urine Bilirubin Negative (Negative) 10/05/22 04:35 Urine UrobilinogenE Negative (Negative) 10/05/22 04:35 Ur Leukocyte Esterase Negative (Negative) 10/05/22 04:35 SARS-CoV-2, RNA, NAAT NEGATIVE (NEGATIVE) 10/04/22 11:14 Blood Type O Negative 10/04/22 13:13 Antibody Screen NEGATIVE 10/04/22 13:13 Impression Hip X-Ray 10/05/22 14:30 FL hip LT 2-3V CLINICAL HISTORY: LT TROCH NAIL TECHNIQUE: 3 views were obtained with the C-arm in the OR with the above procedure. Total fluoroscopy time was 55 seconds. Radiation dose was 12.62 mGy. Comparison: None available at the time of this dictation. FINDINGS/IMPRESSION: Intraoperative images were obtained of left femoral neck nail placement. Please correlate with intraoperative fluoroscopy and operative report. ACT 112: Negative or not required by law. Electronically signed by: Robby Brown M.D. 10/06/2022 8:46 AM (1) Fracture of femoral neck, left, closed Encounter type:initial encounter Qualified Code(s):S72.002A - Fracture of unspecified part of neck of left femur, initial encounter for closed fracture Signed By: <Electronically signed by Rosendo Bryant DO> 10/06/22 1240 <Electronically signed by Petr Parkinson PA-C> 10/06/22 1237 Created:10/06/22 1234 POD 2 Pt sitting in chair at bedside. Feeling better today. States she's been having knee pain in the left knee and is concerned about possible injury. No other complaints. Pt is hoping to go home today. Physical Exam Physical Exam: Dressing intact. Calves soft,NT. NV intact. Mild soft tissue swelling around the left knee compared to the right knee. No pain on palpation. No erythema. I can take her through gentle passive ROM without pain or crepitus. No apparent ligamentous injury. Pt remained stable during her stay; progressing well with PT. Pt discharged to home. Total Time Total Time Spent Total Time Spent (In Minutes): 10 Discharge Plan Discharge Items Patient Disposition: Home - Home Health Services Reason For Visit: LEFT FEMORAL NECK FRACTURE Discharge Diagnosis: Left femoral neck fracture Activity: Per Instructions section Weightbearing: Left partial Weightbearing Comment: Partial weightbearing left lower extremity Non-emergency contact: Surgeon Call non-emergency contact if: you have any medication questions, your pain is not controlled, your temperature is above 101.5, your wound has increased redness and your wound has increased drainage Follow-up/Referrals: Vandana Banegas MD [Primary Care Provider] - Damian Schmidt DO [Surgeon] - (Follow-up with Dr. Schmidt in 2 weeks from the day of your surgery for your first postoperative visit.) Diet: Regular Addtl Attending Provider Instructions: [facility] DISCHARGE INSTRUCTIONS: HIP FRACTURE SELF CARE INSTRUCTIONS: A. You are to ambulate with a walker or crutches for approximately 6 weeks. B. You are PARTIAL WEIGHT BEARING on your operative lower extremity for at least 6 weeks. C. Wear low heeled shoes with non-slip soles D. Be sure that your floors are free of things that could trip you throw rugs, electrical cords, and small objects. Avoid wet and waxed floors, especially with crutches/walker/cane. E. Try to walk several times a day with rest periods between. F. You may shower 48 hours after surgery and get the incision area wet, but DO NOT soak or submerge incision area in water. (No baths, swimming pools, hot tubs) G. You may have a large, band-aid like dressing over your incision (Aquacel). This will remain on your incision for 7 days, and then can be removed. You CAN shower with this on. If incision is leaking through the dressing, please call the office . H. Do NOT apply soap or any ointment/lotions directly over incision. I. You may use ice as needed to operative site. SPECIAL CARE INSTRUCTIONS: VERY IMPORTANT TO READ AND REVIEW A. You may be at risk for phlebitis or blood clots. a. Wear surgical stockings (AGUSTINA hose) for 2 weeks after surgery to improve circulation and reduce swelling. b. Take ASPIRIN 81 mg twice daily for 4 weeks or as directed. This is your blood thinner. B. There are a few signs you need to watch for after you are home. Call [facility] at [phone] if you experience any of the following: a. If you have a temperature of 101 degrees or higher. b. Sudden increase in pain in your hip not relieved by rest or pain medication. c. Any fluid or drainage from the incision; redness of the incision. d. Shortness of breath or chest pain. C. Call your physician if: a. Temperature is greater than 101 degrees (F). b. Pain is not relieved by prescribed pain medications. c. Increase drainage or redness from incision. d. Unanswered questions or concerns. D. Pain Medication: a. You will be prescribed pain medication upon discharge that should last till your first post-operative appointment. b. If you experience nausea and/or skin rash, discontinue this medication and contact our office for an alternative medication. c. Caution- narcotic pain medication can cause constipation. FOLLOW UP VISIT: Please call [facility] at [phone] to schedule a follow up appointment 10-14 days from the date of your surgery date. Addtl Bell Ringer Provider Instructions: Stand-Alone Forms: My [facility], Smoking Cessation Medications and DC Order Prescriptions: New aspirin 81 mg Tablet,Delayed Release (Dr/Ec) 81 mg PO BID 30 Days Qty: 60 0RF polyethylene glycol 3350 [Miralax] 17 gram powder in packet 17 g PO DAILY PRN (Reason: constipation) Qty: 5 0RF oxycodone 5 mg tablet 5 mg PO Q4H MDD 6 PRN (Reason: pain) Qty: 30 0RF Continued lutein 6 mg tablet 6 mg PO DAILY vitamin B complex Tablet 1 tab PO DAILY Rx Instructions: VIT B6/B12 COMBINATION calcium carbonate-vitamin D2 600 mg calcium- 200 unit Tablet 1 tab PO DAILY Discharge Orders: Discharge Order (Routine); Ordered 10/07/22 Ordered By: Petr Parkinson Admission Data Admit Date/Time: 10/04/22 15:15 Attending Provider: Damian Schmidt Admit Provider: Damian Schmidt Primary Care Provider: Vandana Banegas Other Providers: Deejay [place] ; Cristy,Home Health Other Interventions: Discharge Summary Assessment (RN) Last Done: 10/07/22 11:36
== END 2022-10-07 13:37 | disposition home health service (06) | DRG 482 ==
LOC: ED 09:49 → 3W 15:15